=== PATIENT | female | born 1930 | race Caucasian/White ===

== ENCOUNTER → 2017-02-26 | Outpatient (CLI) | payer OTHER | END | disposition home or self-care (01) | LOC: CT 09:38 | DX: R41.3 Other amnesia (principal); R51 Headache ==

== ENCOUNTER → 2018-02-04 | Outpatient (CLI) | payer MEDICARE | END | disposition home or self-care (01) | LOC: RAD 10:57 | DX: M16.11 Unilateral primary osteoarthritis, right hip (principal) ==